=== PATIENT | male | born 1945 | race Caucasian/White ===

== ENCOUNTER → 2018-06-29 07:06 | Outpatient (CLI) | payer MEDICARE, SELFPAY ==
--- NOTE | 2018-06-29 07:19 | NM_ITS ---
History and Indications: Hypertension, hyperlipidemia, family history, chest pain and shortness of breath Procedure: Agent exercised on George protocol 5 minutes and 30 seconds, resting heart rate was 67 bpm resting blood pressure 180/90, with exercise maximum heart rate achieved was 1 38 bpm which is equal to 93% of the maximum predicted heart rate and a blood pressure was 231/101. The patient has adequate exercise capacity achieved 7mets of workload on treadmill, the blood pressure response to exercise was hypertensive. Electrocardiogram: Resting electrocardiogram showed sinus rhythm nonspecific ST-T changes, with exercise occasional premature ventricular complex seen less than 1.[address] segment depression noted from the baseline, excessive baseline artifact seen. The EKG portion of the exercise Myoview is nondiagnostic. Cardiac stress and resting SPECT images: Cardiac stress and resting SPECT images were obtained using technetium 99 Myoview 31.3 mCi at stress and 10.5 mCi at rest. Gated SPECT further analysis of segmental wall motion and calculation of the ejection fraction also done. Cardiac stress and resting SPECT images show decreased tracer activity in the inferoapical wall which improves on the resting images suggestive of reversible ischemia. Computer derived ejection fraction 54% with no regional wall motion abnormality, right ventricle is normal size and contractility. Conclusion: 1. The EKG portion of the exercise Myoview is nondiagnostic, patient has adequate exercise capacity achieved 7mets of workload on treadmill, the blood pressure response to exercise was hypertensive, there was no exercise-induced chest discomfort. Test was stopped due to shortness of breath. 2. Scintigraphic evidence of mild reversible ischemia involving the inferiorapical wall, computer derived ejection fraction is 54% with no regional wall motion abnormality, right ventricle is normal size and contractility. 3. Abnormal exercise Myoview study.
--- NOTE | 2018-06-29 08:08 | HMH.ITSHM ---
Current Home Medications as stated by this patient Osmany Rios or national sales representative. []LISINOPRIL SIMVASTATIN ASA
== END ==
PROVIDERS: PCP Internal Medicine; Visit Provider Internal Medicine Cardiovascular Disease
DX: R07.9 Chest pain, unspecified (principal)
CPT/HCPCS: 78452; 93017; A9502

== ENCOUNTER 2022-04-07 11:37 | Emergency (ER) | payer MEDICARE, SELFPAY ==
[2022-04-07] VITALS (57 sets, daily range): BP systolic 65–150; BP diastolic 42–92; PULSE 69–103; RESP 16–19; TEMP 36.8–36.9; O2SAT 93–100; BMI 35.2
--- NOTE | 2022-04-07 11:50 | XR_ITS ---
FINAL REPORT TECHNIQUE: Single view chest CLINICAL HISTORY: soa FINDINGS: A single view of the chest was obtained. The heart and mediastinum are within normal limits. The lungs are clear. There is no pneumothorax. Osseous structures are unremarkable. IMPRESSION: No acute cardiopulmonary process. Reviewed, Interpreted and Dictated by Jarocho Daniel III, MD Transcribed by Erin Ward Authenticated and [facility]
--- NOTE | 2022-04-07 11:50 | HMH.EDGENADL ---
Discharge Plan Disposition Patient Disposition: Home, Self-Care Condition: Good Prescriptions Prescriptions: New epinephrine 0.3 mg/0.3 mL auto-injector 0.3 mg IM Q10M PRN (Reason: anaphylaxis) Qty: 2 0RF Rx Instructions: for 2 doses No Action lisinopril-hydrochlorothiazide 10-12.5 mg tablet 1 tab PO DAILY Qty: 30 4RF aspirin 81 MG tablet,delayed release (DR/EC) 81 mg PO DAILY simvastatin 20 MG tablet 20 mg PO DAILY Referrals Follow up/Referrals: Rome Cisneros MD [Primary Care Provider] - See instructions Clinical Impressions Clinical Impression: Allergic reaction Instructions Patient Instructions: Anaphylaxis Discharge ED Provider: Robert Grant General Adult HPI General Chief complaint: Allergic Reaction Stated complaint: breaking out in hives,SOA Time Seen by Provider: 04/07/22 11:40 History of Present Illness HPI narrative: Patient is a 76-year-old male who presents with concern for allergic reaction. He states that on Thursday he had a similar incident in which he ended up having diffuse hives all over his body. He took a Benadryl and his symptoms resolved. He says that he was okay until this morning when he woke up and he was having a substantial amount of hives again. He then started to feel little short of breath when he got to the ER. He denies any diarrhea. Denies any diaphoresis. Denies any chest pain. He says that his shortness of breath is actually completely resolved. He says that his airway did feel like it was closing at 1 point. He has not taken anything for his symptoms today. Related Data Home Medications Medication Instructions Recorded Confirmed aspirin 81 mg tablet,delayed 81 mg PO DAILY unknown 06/11/18 07/22/18 release simvastatin 20 mg tablet 20 mg PO DAILY Cholesterol 06/11/18 07/22/18 Previous Rx's Medication Instructions Recorded lisinopril 10 1 tab PO DAILY #30 tabs 04/11/19 mg-hydrochlorothiazide 12.5 mg tablet epinephrine 0.3 mg/0.3 mL 0.3 mg (0.3 mL) IM Q10M PRN 04/07/22 injection, auto-injector anaphylaxis #2 ea Allergies Allergy/AdvReac Type Severity Reaction Status Date / Time No Known Allergies Allergy Verified 07/22/18 12:08 [facility] Disclaimer: The information contained in this section may have been updated after the patient was seen, as this information can be updated by other users. Medical History (Updated 04/07/22 @ 17:37 by Robert Grant MD) CAD (coronary artery disease) SOB (shortness of breath) Social History Smoking Status: Never smoker second hand exposure: No alcohol intake: never substance use type: denies use current occupational status: retired Travel in the last 8 weeks: Inside the [place] household members: spouse housing: house current occupational exposures/hazards: No caffeine: No ROS Obtained: Yes All systems reviewed & no additional complaints except as documented A 14 point review of system was obtained and otherwise negative except per HPI Physical Exam General General appearance: alert and in no apparent distress Head Head exam: atraumatic, normocephalic and normal inspection Eye Eye exam: Present normal appearance, PERRL and EOMI ENT ENT exam: Present normal exam, normal oropharynx, mucous membranes moist, TM's normal bilaterally and normal external ear exam Neck Neck exam: Present normal inspection, full ROM and trachea midline; Absent meningismus or lymphadenopathy Chest Chest inspection: Present normal inspection and symmetric chest wall rise; Absent tenderness Respiratory Respiratory exam: Present normal lung sounds bilaterally; Absent respiratory distress Cardiovascular Cardiovascular exam: Present regular rate and normal rhythm; Absent JVD Abdominal Exam Abdominal exam: Present soft and normal bowel sounds; Absent distention, tenderness or guarding Extremities Exam Extremities exam: Present normal inspect
--- NOTE | 2022-04-07 12:29 | PC.NURSE ---
GIOVANNY HILL at
--- NOTE | 2022-04-07 12:30 | PC.NURSE ---
PATIENT'S CAME OUT IN THE HALLWAY AND STATED PT WAS SHORT OF BREATH. MYSELF, ALONG WITH DR HERNANDEZ, MEEK RN, AND TRISTAN RN AT BEDSIDE. BP NOTED IN 70/49. CHECKED MANUALLY AND CONFIRMED BP WAS CORRECT. O2 PLACED ON PATIENT. 0.5MG EPI IM IN R THIGH GIVEN PER ER MD REQUEST. 1L FLUID BOLUS GIVEN WELL. VITALS CYCLING EVERY 5 MINUTES. CALLED PHARMACY TO MAKE EPI DRIP PER ER MD REQUEST. WILL START ONCE PHARMACY BRINGS IT DOWN AND TITRATE NEEDED. AT BEDSIDE AND UPDATED ON PLAN OF CARE. PT IN BED. DROWSY FROM IV BENDRYL. BED IN LOWEST POSITION. CALL LIGHT WITHIN REACH.
--- NOTE | 2022-04-07 12:33 | PC.NURSE ---
Yaritza WALKER, Naomie WALKER and GIOVANNY HILL at . family at
[2022-04-07 12:46] LABS: Basophils # 0.1 K/mm3 (0-0.2); Basophils % 0.6 % (0.1-2.0); Eosinophils # 0.1 K/mm3 (0.0-0.4); Eosinophils % 1.4 % (0.1-12.0); Hematocrit 47.1 % (42.0-52.0); Hemoglobin 15.4 g/dL (14.1-18.0); Lymphocytes # 1.5 K/mm3 (0.7-4.5); Lymphocytes % 17.3 % (10-50); Mean Corpuscular HGB Conc 32.7 g/dL (31.8-35.4); Mean Corpuscular Hemoglobin 30.1 pg (27.0-31.2); Mean Corpuscular Volume 92.2 fl (80-94); Mean Platelet Volume 8.9 fl (7.4-10.4); Monocytes # 0.5 K/mm3 (0.1-1.0); Monocytes % 5.5 % (1.7-9.3); Neutrophils # 6.3 K/mm3 (1.8-7.8); Neutrophils % 75.3 % (37.0-80.0); Platelet Count 357 K/mm3 (142-424); Red Blood Count 5.11 M/mm3 (4.60-6.20); Red Cell Distribution Width 13.5 % (11.5-17.5); White Blood Count 8.4 K/mm3 (4.8-10.8)
--- NOTE | 2022-04-07 12:56 | PC.NURSE ---
increased epi drip to 4mcg/min at this time
[2022-04-07 13:09] LABS: Alanine Aminotransferase 30 U/L (12-78); Albumin Level 4.3 g/dl (3.5-5.0); Albumin/Globulin Ratio 1.7 (1.1-1.8); Alkaline Phosphatase 105 U/L (38-126); Anion Gap 12.6 mEq/L (5-15); Aspartate Amino Transferase 54 U/L (17-59); Bilirubin,Total 0.8 mg/dl (0.2-1.3); Blood Urea Nitrogen 28 mg/dl (9-20); Calcium 9.7 mg/dl (8.4-10.2); Carbon Dioxide 29 mmol/L (22.0-30.0); Chloride 101 mmol/L (98-107); Creatinine Clearance Estimated 83 mL/min (50-200); Estimated Glomerular Filt Rate 54 ml/min (>60); GFR (African American) 65 ML/MIN (>60); Globulin 2.6 g/dL (1.3-3.2); Glucose 134 mg/dl (74-100); Potassium 4.6 mmoL/L (3.5-5.1); Sodium 138 mmol/L (136-145); Total Protein,Serum 6.9 g/dl (6.3-8.2)
--- NOTE | 2022-04-07 13:11 | PC.NURSE ---
BP NOTED 113/57. TITRATED DOWN TO 2MCG/MIN.
[2022-04-07 13:14] LABS: C-Reactive Protein 28.3 mg/L (0-4)
[2022-04-07 13:25] LABS: Procalcitonin 0.073 ng/mL (0.0-2.0)
--- NOTE | 2022-04-07 14:10 | PC.NURSE ---
TURNED EPI DRIP OFF BP NOTED 120S/60S. ER MD NOTIFIED.
--- NOTE | 2022-04-07 14:49 | PC.NURSE ---
PT'S BP DROPPED BACK DOWN 80S SYSTOLIC. ER MD NOTIFIED. PER HIS REQUEST TURN EPI DRIP BACK ON 4MCG/MIN. EPI DRIP STARTED AND PT TOLERATING WELL. VITALS CYCLING. WILL MONITOR. PT REPOSITIONED IN BED AND RESTING AT THIS TIME. AT BEDSIDE. PROVIDED WITH GLASS OF WATER. CALL LIGHT WITHIN REACH.
--- NOTE | 2022-04-07 15:55 | PC.NURSE ---
TURNED EPI DRIP OFF PER ER MD REQUEST. PT ASLEEP AT THIS TIME. VITALS STABLE. AT BEDSIDE.
--- NOTE | 2022-04-07 17:37 | PC.NURSE ---
Assisted pt to restroom. Pt tolerated well. Repositioned in bed and provided with glass of water. No questions or concerns voiced at this time. Call light within reach.
== END 2022-04-07 18:00 | disposition home or self-care (01) ==
PROVIDERS: Emergency Provider Student in an Organized Health Care Education/Training Program; PCP Internal Medicine
DX: T78.2XXA Anaphylactic shock, unspecified, initial encounter; L50.0 Allergic urticaria; R06.02 Shortness of breath
CPT/HCPCS: 71045; 80053; 84145; 85025; 86140; 96374; 96375; 99291